=== PATIENT | male | born 1955 | race Caucasian/White ===

== ENCOUNTER 2024-01-22 08:23 | Emergency (ER) | payer MEDICARE, OTHER ==
[~2024-01-22] VITALS: Ht 175.3 cm; Wt 102.0 kg
[2024-01-22 09:06] LABS: EOSINOPHILS # (AUTO) 0.1 X10'3 (0-0.9); LYMPHOCYTES # (AUTO) 0.8 X10'3 (1.1-4.8); NEUTROPHILS # (AUTO) 7.7 X10'3 (1.8-7.7)
[2024-01-22 09:08] LABS: BASOPHILS % (AUTO) 0.4 % (0-1); HEMATOCRIT 44.7 % (42.0-52.0); HEMOGLOBIN 15.5 g/dl (14.0-17.9); LYMPHOCYTES % (AUTO) 8.8 % (21-51); MEAN CORPUSCULAR HEMOGLOBIN 34.2 PG (27.0-31.0); MEAN CORPUSCULAR HGB CONC 34.7 g/dL (33.0-36.5); MEAN CORPUSCULAR VOLUME 98.6 FL (78-98); MEAN PLATELET VOLUME 8.4 FL (7.4-10.4); MONOCYTES # (AUTO) 0.8 X10'3 (0-0.9); MONOCYTES % (AUTO) 8.6 % (2-12); NEUTROPHILS % (AUTO) 81.2 % (42-75); PLATELET COUNT 131 X10'3 (140-440); RED BLOOD COUNT 4.53 X10'6 (4.70-6.10); RED CELL DISTRIBUTION WIDTH 12.6 % (11.5-14.5); WHITE BLOOD COUNT 9.4 X10'3 (4.5-11.0)
[2024-01-22 09:22] LABS: ALANINE AMINOTRANSFERASE 33 U/L (12-78); ALBUMIN 3.3 G/DL (3.4-5.0); ALBUMIN/GLOBULIN RATIO 0.9 (1.1-1.5); ALKALINE PHOSPHATASE 75 IU/L (46-116); ANION GAP 10 (8-16); ASPARTATE AMINO TRANSFERASE 27 U/L (10-37); BILIRUBIN,TOTAL 1.1 MG/DL (0.1-1.0); BLOOD UREA NITROGEN 12 MG/DL (7-18); BUN/CREATININE RATIO 11.1 (10.0-20.0); CALCIUM 9.2 MG/DL (8.5-10.1); CHLORIDE 102 MMOL/L (99-107); CREATININE 1.08 MG/DL (0.60-1.10); GLUCOSE 148 MG/DL (70-104); LIPASE 26 U/L (16-77); POTASSIUM 3.9 MMOL/L (3.5-5.1); SODIUM 139 MMOL/L (135-145); TOTAL PROTEIN 7.1 G/DL (6.4-8.2); eCRCL 66 ML/MIN; eGFR 68 ML/MIN
[2024-01-22 09:40] VITALS: TEMP 97.6
[2024-01-22] MEDS: ketorolac trometh 15mg/ml vial 15 MG/ML ML IV ONE (09:40)
--- NOTE | 2024-01-22 10:14 | NUR ---
ultrasound at bedside
[2024-01-22] MEDS: LIDOcaine 2% Viscous 15ml cup MM ONE (12:29)
[2024-01-22] MEDS: mag hydrox/Alum hydrox/simeth 30ml oral suspension PO ONE (12:30)
[2024-01-22 12:48] LABS: BILIRUBIN,URINE MODERATE (Neg); CLARITY,URINE SLIGHTLY CLOUDY (Clear); COLOR,URINE YELLOW (Yellow); GLUCOSE, URINE 100 mg/dl (Neg); KETONES,URINE >=80 mg/dl (Neg); LEUKOCYTE ESTERASE ,URINE NEGATIVE (Neg); OCCULT BLOOD,URINE NEGATIVE (Neg); PROTEIN,URINE TRACE mg/dl (Neg)
[2024-01-22] MEDS ORDERED: OMEP40CA21 PO (12:48)
[2024-01-22] MEDS ORDERED: SUCR1TAB PO (12:48)
[2024-01-22 12:57] VITALS: BP 143/93; PULSE 84; RESP 16; O2SAT 98
[2024-01-22 12:58] LABS: UA COLLECTION TYPE CLN CATCH MIDSTREAM
[2024-01-22 13:01] LABS: MUCUS STRANDS MODERATE /LPF (Neg); NITRITES, URINE NEGATIVE (Neg); SQUAMOUS EPITHELIAL CELL,UR FEW /LPF (FEW)
[2024-01-22 13:02] LABS: WBC,URINE 0-4 /HPF (0-4)
[2024-01-22 13:03] LABS: AMORPHOUS URATES 1+; BACTERIA,URINE FEW /HPF (Neg); RBC,URINE 0-2 /HPF (0-2)
== END 2024-01-22 12:58 | disposition home or self-care (01) ==
LOC: ER 08:23
DX: R10.13 Epigastric pain (principal); E78.00 Pure hypercholesterolemia, unspecified; I10 Essential (primary) hypertension; Z79.899 Other long term (current) drug therapy
CPT/HCPCS: 36415; 74176; 76700; 80053; 81001; 83690; 84145; 84484; 85025; 96374; 99285; J1885; J7030; 96372

== ENCOUNTER 2024-01-23 16:29 | Inpatient (IN) | payer MEDICARE, OTHER ==
[~2024-01-23] VITALS: Ht 175.3 cm; Wt 101.2 kg
[~2024-01-23 16:29] MED LIST: OMEP40CA21 PO; SUCR1TAB PO
[2024-01-23 18:18] LABS: RED CELL DISTRIBUTION WIDTH 12.5 % (11.5-14.5)
[2024-01-23 18:20] LABS: BASOPHILS % (AUTO) 0.3 % (0-1); EOSINOPHILS # (AUTO) 0.1 X10'3 (0-0.9); EOSINOPHILS % (AUTO) 0.5 % (0-6); HEMATOCRIT 45.7 % (42.0-52.0); HEMOGLOBIN 15.8 g/dl (14.0-17.9); LYMPHOCYTES # (AUTO) 0.7 X10'3 (1.1-4.8); LYMPHOCYTES % (AUTO) 5.4 % (21-51); MEAN CORPUSCULAR HEMOGLOBIN 34.2 PG (27.0-31.0); MEAN CORPUSCULAR HGB CONC 34.5 g/dL (33.0-36.5); MEAN CORPUSCULAR VOLUME 98.9 FL (78-98); MEAN PLATELET VOLUME 8.5 FL (7.4-10.4); MONOCYTES # (AUTO) 1.2 X10'3 (0-0.9); MONOCYTES % (AUTO) 9.2 % (2-12); NEUTROPHILS % (AUTO) 84.6 % (42-75); PLATELET COUNT 165 X10'3 (140-440); RED BLOOD COUNT 4.62 X10'6 (4.70-6.10)
[2024-01-23] MEDS ORDERED: diatr meglu/diatrizoate 30ml oral sol.-(3 dose) bottle PO SCH (18:30)
[2024-01-23 18:38] LABS: ALANINE AMINOTRANSFERASE 32 U/L (12-78); ALBUMIN 3.4 G/DL (3.4-5.0); ALBUMIN/GLOBULIN RATIO 0.8 (1.1-1.5); ALKALINE PHOSPHATASE 71 IU/L (46-116); AMYLASE 48 U/L (25-115); ANION GAP 12 (8-16); ASPARTATE AMINO TRANSFERASE 28 U/L (10-37); BILIRUBIN,TOTAL 0.9 MG/DL (0.1-1.0); BLOOD UREA NITROGEN 9 MG/DL (7-18); CALCIUM 8.8 MG/DL (8.5-10.1); CHLORIDE 102 MMOL/L (99-107); GLUCOSE 97 MG/DL (70-104); LIPASE 35 U/L (16-77); POTASSIUM 3.6 MMOL/L (3.5-5.1); SODIUM 141 MMOL/L (135-145); TOTAL CARBON DIOXIDE 27.3 MMOL/L (24-32); TOTAL PROTEIN 7.5 G/DL (6.4-8.2); eCRCL 72 ML/MIN; eGFR 75 ML/MIN
[2024-01-23] MEDS: ondansetron/PF 4mg/2ml inj IV ONE (18:45)
[2024-01-23] MEDS: morphine 10mg/ml inj. IV ONE (18:45)
[2024-01-23] MEDS: metroNIDAZOLE-Flagyl 500mg/NS 100 ML IV STA (18:45)
[2024-01-23 19:05] LABS: H PYLORI ANTIBODY NEGATIVE (Neg)
[2024-01-23] MEDS: HYDROmorphone 1 mg/ml syringe IV ONE ×2 (19:23→22:25)
[2024-01-23] MEDS ORDERED: ondansetron/PF 4mg/2ml inj IV PRN (20:25)
[2024-01-23] MEDS ORDERED: acetaminophen 325mg tablet PO PRN (20:25)
[2024-01-23] MEDS ORDERED: magnesium hydroxide 30ml (MOM) UD suspension PO PRN (20:25)
[2024-01-23] MEDS ORDERED: magnesium sulf-water 4G/100mL 100 ML IV PRN (20:25)
[2024-01-23] MEDS ORDERED: potassium Cl 20 mEq SR tablet PO PRN ×2 (20:25)
[2024-01-23] MEDS ORDERED: magnesium Cl slow-release 64mg tablet PO PRN (20:25)
[2024-01-23] MEDS ORDERED: potassium Cl 40MEQ/1/2NS 520ml 520 ML IV PRN (20:25)
[2024-01-23] MEDS ORDERED: mag hydrox/Alum hydrox/simeth 30ml oral suspension PO PRN (20:25)
[2024-01-23] MEDS ORDERED: magnesium sulf-water 2g/50mL 50 ML IV PRN (20:25)
[2024-01-23] MEDS: normal saline 1000ml 1,000 ML IV SCH (20:50)
[2024-01-23] MEDS: HYDROcodone/acetaminophen 5mg/325mg tablet PO PRN (20:50)
[2024-01-23 21:12] LABS: BILIRUBIN,URINE SMALL (Neg); CLARITY,URINE SLIGHTLY CLOUDY (Clear); COLOR,URINE YELLOW (Yellow); GLUCOSE, URINE NEGATIVE (Neg); KETONES,URINE >=80 mg/dl (Neg); LEUKOCYTE ESTERASE ,URINE NEGATIVE (Neg); NITRITES, URINE NEGATIVE (Neg); OCCULT BLOOD,URINE NEGATIVE (Neg); PROTEIN,URINE NEGATIVE (Neg); UROBILINOGEN,URINE 0.2 E.U/dL (0.2-1.0)
[2024-01-23 21:21] LABS: UA COLLECTION TYPE URINAL
[2024-01-23 21:22] LABS: MUCUS STRANDS MANY /LPF (Neg)
[2024-01-23 21:23] LABS: BACTERIA,URINE FEW /HPF (Neg); RBC,URINE NONE SEEN /HPF (0-2); SQUAMOUS EPITHELIAL CELL,UR FEW /LPF (FEW); WBC,URINE 0-4 /HPF (0-4)
[2024-01-23] MEDS: HYDROmorphone inj. 0.5 MG/0.5 ML DISP.SYRIN IV PRN (21:51)
[2024-01-23] MEDS: ciprofloxacin lact 400MG/200ML 200 ML IV SCH ×2 (22:10→22:35)
[2024-01-23] MEDS: diatr meglu/diatrizoate 30ml oral sol.-(3 dose) bottle PO SCH (22:28)
[2024-01-23] MEDS: diphenhydrAMINE 50 mg/ml inj IV ONE (22:29)
[2024-01-23] MEDS: LORazepam 2 mg/ml vial IV ONE (22:33)
[2024-01-23] MEDS: acetaminophen 1,000mg/100ml IV 100 ML IV STA (23:55)
[2024-01-24 02:21] LABS: BASOPHILS % (AUTO) 0.3 % (0-1); EOSINOPHILS % (AUTO) 0 % (0-6); HEMATOCRIT 45.1 % (42.0-52.0); HEMOGLOBIN 15.1 g/dl (14.0-17.9); LYMPHOCYTES # (AUTO) 0.5 X10'3 (1.1-4.8); MEAN CORPUSCULAR HEMOGLOBIN 33.1 PG (27.0-31.0); MEAN CORPUSCULAR HGB CONC 33.4 g/dL (33.0-36.5); MEAN CORPUSCULAR VOLUME 98.9 FL (78-98); MEAN PLATELET VOLUME 8.5 FL (7.4-10.4); MONOCYTES % (AUTO) 6.7 % (2-12); NEUTROPHILS # (AUTO) 13.7 X10'3 (1.8-7.7); PLATELET COUNT 159 X10'3 (140-440); RED BLOOD COUNT 4.56 X10'6 (4.70-6.10); RED CELL DISTRIBUTION WIDTH 12.6 % (11.5-14.5); WHITE BLOOD COUNT 15.3 X10'3 (4.5-11.0)
[2024-01-24 02:30] LABS: ALANINE AMINOTRANSFERASE 32 U/L (12-78); ALBUMIN 3.2 G/DL (3.4-5.0); ALBUMIN/GLOBULIN RATIO 0.8 (1.1-1.5); ALKALINE PHOSPHATASE 66 IU/L (46-116); ANION GAP 8 (8-16); ASPARTATE AMINO TRANSFERASE 28 U/L (10-37); BILIRUBIN,TOTAL 0.6 MG/DL (0.1-1.0); BLOOD UREA NITROGEN 11 MG/DL (7-18); BUN/CREATININE RATIO 10.8 (10.0-20.0); CALCIUM 8.5 MG/DL (8.5-10.1); CHLORIDE 104 MMOL/L (99-107); CHOLESTEROL 247 MG/DL (0-200); CREATININE 1.02 MG/DL (0.60-1.10); GLUCOSE 135 MG/DL (70-104); HDL CHOLESTEROL 61 MG/DL (35-60); LDL CHOLESTEROL 145 MG/DL (50-100); MAGNESIUM 1.7 MG/DL (1.5-2.4); POTASSIUM 4.2 MMOL/L (3.5-5.1); SODIUM 140 MMOL/L (135-145); TOTAL CARBON DIOXIDE 27.7 MMOL/L (24-32); TOTAL PROTEIN 7.1 G/DL (6.4-8.2); TRIGLYCERIDES 81 MG/DL (20-135); eCRCL 70 ML/MIN; eGFR 73 ML/MIN
[2024-01-24] MEDS: labetalol 20mg/4ml (5mg/ml) syringe IV ONE (03:08)
[2024-01-24] MEDS ORDERED: ketorolac trometh 30MG/ML vial 30 MG/ML VIAL IV ONE (04:20)
[2024-01-24] MEDS: ketorolac trometh 15mg/ml vial 15 MG/ML ML IV ONE (04:39)
[2024-01-24] MEDS: K and/or MAG REPLACEMENT MC SCH (08:00)
[2024-01-24] MEDS: docusate sod 100mg capsule PO SCH (08:00)
[2024-01-24] MEDS: pantoprazole 40 MG vial IV SCH (08:07)
[2024-01-24] MEDS: metroNIDAZOLE-Flagyl 500mg/NS 100 ML IV SCH (08:07)
[2024-01-24] MEDS: ringers solution, lacted 1,000 ML IV ONE ×3 (08:21→19:36)
[2024-01-24] MEDS ORDERED: iohexol 300mg/ml 100ml inj. ONE (10:26)
[2024-01-24] MEDS: HEPARIN DRIP DVT/PE -**PHARMACIST TO DOSE IV ONE (11:50)
[2024-01-24] MEDS ORDERED: heparin 10,000 units/1 ML INJ IV PRN (12:20)
[2024-01-24] MEDS: MESSAGE TO NURSING IV ONE ×2 (13:29→21:35)
[2024-01-24] MEDS: heparin 10,000 units/1 ML INJ IV ONE (13:47)
[2024-01-24] MEDS: heparin 25,000 UNIT/250ml bag 250 ML IV PRN (13:49)
[2024-01-24] MEDS ORDERED: HYDROmorphone 1 mg/ml syringe IM ONE (14:30)
[2024-01-24] MEDS: HYDROmorphone 1 mg/ml syringe IV ONE (14:47)
[2024-01-24 15:00] VITALS: BP 134/80; PULSE 94; RESP 20; TEMP 96.9; O2SAT 97
[2024-01-24] MEDS: HYDROmorphone 1 mg/ml syringe IV PRN ×2 (16:18→17:41)
[2024-01-24] MEDS: LORazepam 2 mg/ml vial IV ONE (17:39)
[2024-01-24 18:00] VITALS: BP 150/85; PULSE 103; RESP 20; TEMP 98.1; O2SAT 93
[2024-01-24 19:27] LABS: ALANINE AMINOTRANSFERASE 28 U/L (12-78); ALBUMIN 2.7 G/DL (3.4-5.0); ALBUMIN/GLOBULIN RATIO 0.7 (1.1-1.5); ALKALINE PHOSPHATASE 54 IU/L (46-116); ANION GAP 9 (8-16); ASPARTATE AMINO TRANSFERASE 20 U/L (10-37); BILIRUBIN,TOTAL 0.5 MG/DL (0.1-1.0); BLOOD UREA NITROGEN 11 MG/DL (7-18); BUN/CREATININE RATIO 12.9 (10.0-20.0); CHLORIDE 104 MMOL/L (99-107); CREATININE 0.85 MG/DL (0.60-1.10); GLUCOSE 143 MG/DL (70-104); POTASSIUM 3.6 MMOL/L (3.5-5.1); SODIUM 140 MMOL/L (135-145); TOTAL CARBON DIOXIDE 26.8 MMOL/L (24-32); TOTAL PROTEIN 6.4 G/DL (6.4-8.2); eCRCL 84 ML/MIN; eGFR 90 ML/MIN
[2024-01-24 20:00] VITALS: RESP 20; O2SAT 92
[2024-01-24] MEDS ORDERED: enoxaparin 40mg/0.4ml syringe SQ SCH (20:00)
[2024-01-24 20:46] LABS: APTT 110 SECONDS (22-32)
[2024-01-24 22:00] VITALS: BP 143/88; PULSE 96; RESP 16; TEMP 97.9; O2SAT 99
== END 2024-01-24 23:07 | disposition critical access hospital (66) | DRG 371 ==
LOC: ER 16:29 → ED HOLD 20:39 → EDBEDREQ 01-24 08:51 → ORTHO 4S 01-24 09:20
PROVIDERS: ADMIT Student in an Organized Health Care Education/Training Program; ATTEND Family Medicine
DX: A04.9 Bacterial intestinal infection, unspecified (principal); I81 Portal vein thrombosis; K55.059 Acute (reversible) ischemia of intestine, part and extent unspecified; R65.10 Systemic inflammatory response syndrome (SIRS) of non-infectious origin without acute organ dysfunction; I82.890 Acute embolism and thrombosis of other specified veins; E78.00 Pure hypercholesterolemia, unspecified; I10 Essential (primary) hypertension; Z87.891 Personal history of nicotine dependence; Z79.899 Other long term (current) drug therapy
CPT/HCPCS: 36415; 74176; 74177; 76700; 80053; 80061; 81001; 82150; 83605; 83690; 83735; 84145; 84484; 85025; 85730; 86677; 86885; 86900; 86901; 87081; 93005; 93975; 96372; 96374; 99285; A4615; G0378; J0131; J0744; J1170; J1200; J1644; J1885; J2060; J2274; J2405; J2470; J3490; J7030; J7120; Q9963; Q9967